=== PATIENT | female | born 1970 | race Caucasian/White ===

== ENCOUNTER → 2016-06-12 | Day surgery (SDC) | payer BC ==
[~2016-06-12] MED LIST: AMITRIPTYLINE H50 MG PO; DIPHENHYDRAMINE 50 MG; HYDROCODON-ACE1 EAC7 PO; LORTAB 7.5-5001 TAB PO; OMEPRAZOLE40 MG PO; XANAX1 MG PO
--- NOTE | ~2016-06-12 | OR ---
Unit #: [id number] #: [id number] Patient: ULISES GODFREY [id number] [address] [address] [id number] O MR#: [id number] NAME: ULISES GODFREY ROOM: Date of Procedure: 06/12/2016 Admission Date: 06/12/2016 Surgeon: Ed Reynaga M.D. : 1970 Attending Physician: Ed Reynaga M.D. Primary Care Physician: Hannah [email or web address] OPERATIVE REPORT SERVICES PROVIDED 1. Therapeutic lumbar epidural steroid injection. 2. Fluoroscopy of lumbosacral spine. 3. IV sedation to facilitate above. PREOPERATIVE DIAGNOSES 1. Degenerative disk disease, L5-S1, L4-5 with bilateral dorsal root ganglia enlargement at multiple lumbosacral levels. 2. 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 POSTOPERATIVE DIAGNOSES 1. Degenerative disk disease, L5-S1, L4-5 with bilateral dorsal root ganglia enlargement at multiple lumbosacral levels. 2. 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 PROCEDURE PERFORMED Lumbar epidural steroid injection using fluoroscopy. FOLLOW-UP/REVIEW OF SYSTEMS/PHYSICAL EXAM Ms. Peacock has lumbar radiculopathy and enlargement of multilevel lumbosacral dorsal root ganglia. She was recommended lumbar epidural steroid injection to see if this will help her symptomatology. She has some thickening of the nerve roots in the cauda equina distally as well. INDICATIONS/COMMENTS AND CONSENTS/STATEMENT OF MEDICAL NECESSITY The patient's current medications, allergies and vital signs are documented in the nursing assessment. The risks and benefits of the intervention were discussed with the patient in detail including but not limited to infection, bleeding, meningitis, steroid induced side-effects, nerve damage, paralysis, spinal headaches, neuritis, persistent or worsening pain. The patient wishes to proceed. A separate pain assessment is also in the chart. I have reviewed all of this and have reviewed this with the patient. A current History and Physical is also attached. DESCRIPTION OF PROCEDURE 1. Monitoring and positioning: After appropriate discussions it was decided to perform the procedure under local anesthesia with supplemental intravenous sedation. Vital signs were monitored in pre, intra and post-procedure phase. Monitoring included EKG, non-invasive BP, pulse oximetry, and temperature. These are documented and were stable. Unit #: [id number] #: [id number] Patient: ULISES GODFREY Appropriate supports and restraints were used. 2. Sedation: A total of 2 mg of Versed and 50 mcg of fentanyl was administered. 3. Lumbar epidural injection/fluoroscopy: The patient was placed in the sitting position. Positional supports were used. Fluoroscopy of the lumbar spine was performed. Sterile prep and drape with carried out with ChloraPrep. Local anesthesia was with infiltrated with 3 mL of preservative-free 1% Lidocaine. Once anesthesia was established, a 22-gauge Tuohy epidural needle was inserted at the L4-5 level epidurally, using a right interlaminar approach, loss of resistance to saline technique, and with fluoroscopic guidance. Needle placement tested negative for subarachnoid and intravascular placement. An intra-operative epidurogram was now performed. Intra-operative epidurogram: 1 mL of Isovue-M300 was injected through the epidural needle under continuous fluoroscopy. The dye was seen to spread to L4 in the cephalad direction, and to L5 in the caudal direction. The spread of the dye was uniform. 1 mL of preservative-free normal saline was used to irrigate the dye off the epidural space. There was no intravascular or intrathecal spread of contrast. A lumbar epidural steroid injection was now performed using a total of 3 mL of solution containing 0.2% bupivacaine in 2 mL followed by 80 mg of Depo-Medrol in 2 mL. Fluoroscopic imaging confirmed spread of medication. The needle was then removed intact. The skin was washed off. Prep solution and dressings were applied at the injection site. The patient tolerated the procedure well. The patient was then observed in the recovery area for 30 minutes. RESULTS The patient had a consistent block with the dose of local anesthetic used. Pain relief was satisfactory. There were no complications or side effects. DISCHARGE CONDITION 1. Patient was discharged in satisfactory condition accompanied by a family member. 2. Post-procedure instructions were given. PLAN The patient will return to the clinic in 6 weeks for re-assessment and repeat intervention. I thank the patient's referring physician for the opportunity to participate in the care of this patient. Please do not hesitate to call for any questions regarding this patient's pain management. Dictated by... Luisito Lakhani/salinas TD: 06/13/2016 01:32 JOB #: [id number] Unit #: [id number] #: [id number] Patient: ULISES GODFREY OPERATIVE REPORT X Ed Reynaga MD PROCEDURE OPERATIVE NOTE
== END | disposition home or self-care (01) ==
LOC: CCSC 07:43
DX: M51.16 Intervertebral disc disorders with radiculopathy, lumbar region (principal); F17.200 Nicotine dependence, unspecified, uncomplicated; Z90.710 Acquired absence of both cervix and uterus
CPT/HCPCS: J1040; J2250; J3010